=== PATIENT | male | born 1945 | race African-American/Black ===

== ENCOUNTER 2018-03-08 11:37 | Inpatient (IN) | payer OTHER ==
[~2018-03-08] VITALS: Ht 182.9 cm; Wt 87.1 kg
[2018-03-08 13:21] LABS: BASOPHILS % 0.3 % (0.0-2.0); EOSINOPHILS % 0.4 % (0.0-5.0); HEMATOCRIT. 35.5 % (42.0-52.0); HEMOGLOBIN. 12.3 g/dL (14.0-18.0); LYMPHOCYTES % 19.6 % (20.0-50.0); MEAN CORPUSCULAR HEMOGLOBIN 32.6 pg (28.0-32.0); MEAN CORPUSCULAR VOLUME 93.9 fL (80.0-94.0); MEAN PLATELET VOLUME 8.9 fl (7.4-10.4); MONOCYTES % 6.4 % (2.0-8.0); NEUTROPHILS % 73.3 % (40.0-76.0); PLATELET 266 x1000/uL (130-400); RED BLOOD CELL COUNT 3.78 mill/uL (4.7-6.1)
[2018-03-08 13:27] LABS: CHLORIDE 100 mEq/L (98-107)
[2018-03-08] MEDS ORDERED: ONDANSETRON HCL 4MG/2ML INJ IV STA (16:58)
[2018-03-08] MEDS ORDERED: MORPHINE SULFATE 4 MG/ML CPJ (NOT FOR IM USE) IV STA (16:58)
[2018-03-08] MEDS ORDERED: TRAMADOL 50MG TABLET PO PRN (19:00)
[2018-03-08] MEDS ORDERED: DIPHENHYDRAMINE 50MG/ML VIAL IV PRN (19:00)
[2018-03-08] MEDS ORDERED: NA PHOS,M-B/NA PHOS,DI-BA ENEMA 118ML PR PRN (19:00)
[2018-03-08] MEDS ORDERED: GUAIFENESIN 200MG/10ML SUGAR FREE UDC PO PRN (19:00)
[2018-03-08] MEDS ORDERED: ONDANSETRON HCL 4MG/2ML INJ IV PRN (19:00)
[2018-03-08] MEDS ORDERED: LORAZEPAM 0.5MG TABLET PO PRN (19:00)
[2018-03-08] MEDS ORDERED: IPRATROPIUM/ALBUTEROL 0.5-3(2.5)MG/3ML NEB INH PRN (19:00)
[2018-03-08] MEDS ORDERED: CLONIDINE 0.1MG TABLET PO PRN (19:00)
[2018-03-08] MEDS ORDERED: DOCUSATE SODIUM 100MG CAPSULE PO PRN (19:00)
[2018-03-08] MEDS ORDERED: MAGNESIUM/ALUMINUM HYDROXIDE/SIMETHICONE 30ML UDC PO PRN (19:00)
[2018-03-08] MEDS ORDERED: ACETAMINOPHEN 325MG TABLET PO PRN (19:00)
[2018-03-08] MEDS ORDERED: NITROGLYCERIN 0.4MG TABLET SL SL PRN (19:00)
[2018-03-08] MEDS ORDERED: DEXTROSE 50% WATER 50ML SYRINGE IV PRN (19:15)
[2018-03-08 20:02] LABS: FOLIC ACID (FOLATE) SERUM 18.1 ng/mL (>5.38)
[2018-03-08] MEDS ORDERED: POTASSIUM CHLORIDE 20MEQ TABLET SR PO NR (20:36)
[2018-03-08] MEDS ORDERED: ZOLPIDEM TARTRATE 5MG TABLET PO PRN (21:00)
[2018-03-08] MEDS: METOPROLOL TARTRATE 25MG TABLET PO SCH (23:42)
[2018-03-08 23:47] VITALS: BP 185/111
[2018-03-09] VITALS (7 sets, daily range): BP systolic 87–143; BP diastolic 51–95
[2018-03-09] MEDS ORDERED: KCL 20MEQ/100ML PREMIX 100 ML IV NR (01:00)
[2018-03-09] MEDS: MORPHINE SULFATE 4 MG/ML CPJ (NOT FOR IM USE) IV PRN ×2 (01:04→23:08)
[2018-03-09] MEDS: LISINOPRIL 20MG TABLET PO SCH ×3 (01:04→21:00)
[2018-03-09] MEDS ORDERED: IOHEXOL-300 100 ML BOTTLE ONE (01:28)
[2018-03-09 02:34] LABS: CREATINE KINASE 51 IU/L (39-308)
[2018-03-09 02:35] LABS: CREATINE KINASE MB FRACTION < 1.0 ng/mL (0.5-3.6)
[2018-03-09] MEDS: METOCLOPRAMIDE 10MG/10 ML UDC PO SCH ×3 (06:50→16:43)
[2018-03-09] MEDS: SUCRALFATE 1 G/10 ML UDC PO SCH ×4 (06:50→21:57)
[2018-03-09] MEDS: BLOOD SUGAR DIAGNOSTIC STRIP TEST SCH ×4 (06:54→22:00)
[2018-03-09] MEDS: INSULIN LISPRO 100 UNITS/ML SUBCUT SCH ×4 (07:00→22:05)
[2018-03-09 07:36] LABS: CREATINE KINASE 50 IU/L (39-308)
[2018-03-09 07:37] LABS: CREATINE KINASE MB FRACTION < 1.0 ng/mL (0.5-3.6)
[2018-03-09] MEDS: METOPROLOL TARTRATE 25MG TABLET PO SCH ×2 (08:24→21:00)
[2018-03-09] MEDS ORDERED: ENOXAPARIN 40MG/0.4ML SYR SUBCUT SCH (09:00)
[2018-03-09] MEDS ORDERED: PANTOPRAZOLE SODIUM 40 MG/VIAL IV SCH (09:00)
[2018-03-09] MEDS ORDERED: ASPIRIN 325MG EC TABLET PO SCH (09:00)
[2018-03-09] MEDS ORDERED: ATORVASTATIN CALCIUM 20MG TABLET PO SCH (21:00)
== END 2018-03-10 00:10 | disposition short-term general hospital (02) | DRG 74 ==
LOC: ER 11:53 → CANRESERV 18:22 → ENRESERV 18:22 → 5WST 18:38 → EDBEDREQ 18:43 → EDBEDREQTM 18:43 → ENRESERV 19:39
PROVIDERS: ADMIT Internal Medicine; ATTEND Internal Medicine
DX: E11.43 Type 2 diabetes mellitus with diabetic autonomic (poly)neuropathy (principal); K29.70 Gastritis, unspecified, without bleeding; K31.84 Gastroparesis; E87.6 Hypokalemia; D63.8 Anemia in other chronic diseases classified elsewhere; R07.89 Other chest pain; I11.9 Hypertensive heart disease without heart failure
CPT/HCPCS: 36415; 71045; 74177; 80061; 82550; 82553; 82607; 82746; 82962; 83036; 83540; 83550; 83880; 84484; 93005; 93306; 93970; 96374; 96375; 99285; A6261; C9113; J1650; J1815; J2270; J2405; J3480; J8597; Q9967